=== PATIENT | male | born 1975 | race African-American/Black ===

== ENCOUNTER 2016-10-13 08:19 | Day surgery (SDC) | payer OTHER ==
[2016-10-13 10:03] VITALS: TEMP 97.5
[2016-10-13 15:32] VITALS: BP 111/63; PULSE 75
--- NOTE | 2016-10-14 11:40 | PATH ---
Surgical Pathology Report Patient Name: ANISH LARA JR [facility]. Rec. #: [id number] /Age/Gender: 1975 (Age: 41) / M Account: [id number] Location: [facility]-ENDOSCOPY Taken: 10/13/2016 Received: 10/13/2016 Reported: 10/14/2016 Physicians: Tomi Trent D.O. Specimen(s) Received A: BX PYLORIC FOLD B: BX BODY OF STOMACH Clinical History Status post perforated ulcer Gastritis Final Diagnosis A. STOMACH, PYLORIC FOLD, BIOPSY: REACTIVE GASTROPATHY IMMUNOSTAIN FOR H. PYLORI IS NEGATIVE. B. STOMACH, BODY, BIOPSY: GASTRIC FUNDIC MUCOSA WITH FOCAL MILD CHRONIC GASTRITIS AND FOCAL HYPERPLASTIC CHANGES. IMMUNOSTAIN FOR H. PYLORI IS NEGATIVE. Electronically Signed Cecil Dahl M.D. Gross Description A. Received in formalin, labeled "biopsy pyloric fold" are 2 hansen, irregular portions of soft tissue measuring 0.2 and 0.3 cm. in greatest dimension. The specimens are submitted in toto in one cassette. B. Received in formalin, labeled "biopsy body of stomach" are 2 hanesn, irregular portions of soft tissue measuring 0.3 and 0.4 cm. in greatest dimension. The specimens are submitted in toto in one cassette. 10/13/201610/13/2016
== END 2016-10-13 14:10 | disposition home or self-care (01) ==
LOC: JASU-ENDO 08:19
PROVIDERS: ATTEND Internal Medicine Gastroenterology
PROC: 0DB68ZX Excision of Stomach, Via Natural or Artificial Opening Endoscopic, Diagnostic (ICD-10-PCS; principal; 2016-10-13 09:30)
DX: K29.70 Gastritis, unspecified, without bleeding (principal); Z87.11 Personal history of peptic ulcer disease
CPT/HCPCS: 88305-TC; 88342-TC